=== PATIENT | female | born 1965 | race Two or more races ===

== ENCOUNTER 2017-06-24 12:52 | Outpatient (CLI) | payer BC, OTHER ==
[~2017-06-24 12:52] MED LIST: ACET-73 PO
[2017-06-24 14:16] LABS: CREATININE 0.8 mg/dL (0.6-1.3)
== END 2017-06-24 23:59 | disposition home or self-care (01) ==
LOC: LAB 12:52
PROVIDERS: ATTEND Family Medicine
DX: R51 Headache (principal)
CPT/HCPCS: 36415; 84520

== ENCOUNTER 2019-03-01 10:01 | Outpatient (CLI) | payer BC, OTHER ==
[2019-03-01 12:49] LABS: BASOPHILS # (AUTO) 0.1 K/uL (0.0-8.0); BASOPHILS % (AUTO) 1.1 % (0.0-2.0); EOSINOPHILS # (AUTO) 0.8 K/uL (0.0-0.7); EOSINOPHILS % (AUTO) 11.7 % (0.0-7.0); HEMOGLOBIN 13.9 g/dL (10.9-14.3); LYMPHOCYTES # (AUTO) 2.3 K/uL (20.0-40.0); LYMPHOCYTES % (AUTO) 33.3 % (20.5-51.5); MEAN CORPUSCULAR HEMOGLOBIN 29.2 uug (24.7-32.8); MEAN CORPUSCULAR HGB CONC 33 g/dL (32.3-35.6); MEAN CORPUSCULAR VOLUME 88.2 fL (75.5-95.3); MONOCYTES # (AUTO) 0.5 K/uL (2.0-10.0); MONOCYTES % (AUTO) 6.7 % (0.0-11.0); NEUTROPHILS # (AUTO) 3.3 K/uL (1.8-8.9); NEUTROPHILS % (AUTO) 47.2 % (38.5-71.5); PLATELET COUNT (AUTO) 273 K/uL (179-408); RED BLOOD CELL COUNT(AUTO) 4.76 MIL/uL (3.63-4.92)
[2019-03-01 13:07] LABS: *BILIRUBIN,URIN NEGATIVE (NEGATIVE); *CLARITY,URINE CLEAR (CLEAR); *COLOR,URINE YELLOW (YELLOW); *KETONES,URINE NEGATIVE (NEGATIVE); *UROBILINOGEN,URINE 0.2 E.U./dl (NORMAL); LEUKOCYTE ESTERASE ,URINE 3+ (NEGATIVE); NITRITE, URINE NEGATIVE (NEGATIVE); PH,URINE 6.5 (5.0-8.0); UGLUCOSE NEGATIVE (NEGATIVE)
[2019-03-01 13:08] LABS: *BLOOD, URINE TRACE (NEGATIVE)
[2019-03-01 13:26] LABS: URIC ACID 4.1 mg/dL (2.6-6.0)
[2019-03-01 13:27] LABS: RBC,URINE 0-3 /HPF (0-3)
[2019-03-01 13:28] LABS: BACTERIA,URINE FEW /HPF (NONE SEEN); SQUAMOUS EPITHELIAL CELL,UR FEW /HPF (NONE SEEN)
[2019-03-02 08:07] LABS: *IMMUNOGLOBULIN G, SERUM 1624 mg/dL (700-1600); IMMUNOGLOBULIN A, SERUM 262 mg/dL (87-352); IMMUNOGLOBULIN M, SERUM 184 mg/dL (26-217)
== END 2019-03-01 23:59 | disposition home or self-care (01) ==
LOC: LAB 10:01
PROVIDERS: ATTEND Family Medicine
DX: M25.50 Pain in unspecified joint (principal)
CPT/HCPCS: 36415; 82784; 84550; 85025; 86038; 86140; 86334; 87086

== ENCOUNTER 2021-01-27 18:08 | Emergency (ER) | payer BC, OTHER ==
[~2021-01-27] VITALS: Ht 154.9 cm; Wt 72.6 kg
[2021-01-27] MEDS ORDERED: IV NORMAL SALINE 1000 ML BAG IV ONE (19:00)
[2021-01-27] MEDS ORDERED: ACETAMINOPHEN ES 500 MG TABLET PO ONE (19:00)
[2021-01-27] MEDS ORDERED: diphenhydrAMINE 50 MG/1 ML VIAL IV ONE (19:00)
[2021-01-27] MEDS ORDERED: METOCLOPRAMIDE HCL 10 MG/2 ML VIAL IV ONE (19:00)
--- NOTE | 2021-01-27 19:05 | NUR ---
RECEIVED REPORT FROM [facility]. PT NOTED TO BE IN BED, RESTING. AT BEDSIDE.
[2021-01-27] MEDS ORDERED: ACETAMINOPHEN ES 500 MG TABLET ONE (19:09)
[2021-01-27 19:10] LABS: HEMATOCRIT 39.9 % (31.2-41.9); MEAN CORPUSCULAR HEMOGLOBIN 29.4 uug (24.7-32.8); MEAN CORPUSCULAR VOLUME 86.8 fL (75.5-95.3); PLATELET COUNT (AUTO) 275 K/uL (179-408)
[2021-01-27] MEDS ORDERED: diphenhydrAMINE 50 MG/1 ML VIAL ONE (19:10)
[2021-01-27] MEDS ORDERED: METOCLOPRAMIDE HCL 10 MG/2 ML VIAL ONE (19:10)
[2021-01-27 19:15] LABS: CREATININE 0.6 mg/dL (0.6-1.3); POTASSIUM 3.8 mmol/L (3.5-5.1)
[2021-01-27 19:19] LABS: BILIRUBIN,DIRECT 0.1 mg/dL (0.0-0.2); BILIRUBIN,TOTAL 0.2 mg/dL (0.2-1.0); PHOSPHOROUS 4.2 mg/dL (2.5-4.9); TOTAL PROTEIN, SERUM 7.8 g/dL (6.4-8.2)
[2021-01-27] MEDS ORDERED: KETOROLAC TROMETHAMINE 30 MG INJ IVP ONE (19:30)
[2021-01-27] MEDS ORDERED: KETOROLAC TROMETHAMINE 30 MG INJ ONE (19:52)
[2021-01-27] MEDS ORDERED: IBUP-1957 PO (19:57)
--- NOTE | 2021-01-27 20:10 | NUR ---
Patient discharged to home in stable condition. No changes in LOC. Denies any pain/discomfort upon discharge. No n/v/d. Denies any dizziness/LUONG. Written and verbal after care instructions given. Patient verbalizes understanding of instructions. Stressed follow up or return to ER for worsening s/s. Steady gait. Accompanied by family.
[2021-01-27 20:16] VITALS: BP 119/76
== END 2021-01-27 20:15 | disposition home or self-care (01) ==
LOC: ER 18:08
DX: R51.9 Headache, unspecified (principal)
CPT/HCPCS: 36415; 80048; 80076; 83735; 84100; 84702; 85025; 96361; 96374; 96375; 99284; J1200; J2765; A4663; A9150; J1885; J7030